=== PATIENT | male | born 1945 ===

== ENCOUNTER 2016-08-29 20:10 | Emergency (ER) | payer MEDICARE, BC ==
--- NOTE | 2016-08-30 16:11 | EDM.PDOC ---
ED HPI GENERAL MEDICAL PROBLEM - General Chief Complaint: General Stated Complaint: LAC ABOVE RIGHT EYE Time Seen by Provider: 08/29/16 20:15 Source of Information: Reports: Patient History Limitations: Reports: No Limitations - History of Present Illness INITIAL COMMENTS - FREE TEXT/NARRATIVE: This is a 71yo M here for a recent fall and hit his forehead with no loss of consciousness. Patient denies having a recent tetanus shot in the last 5-10 yrs. No other concerns. Onset: Sudden Location: Reports: Head Severity: Mild Associated Symptoms: Reports: No Other Symptoms - Related Data Allergies Allergy/AdvReac Type Severity Reaction Status Date / Time No Known Allergies Allergy Verified 08/29/16 20:25 Home Meds: Home Meds Hydrochlorothiazide 25 mg PO DAILY 08/29/16 [History] Metoprolol Tartrate [Lopressor] 25 mg PO Q12HR 08/29/16 [History] Rosuvastatin [Crestor] 10 mg PO DAILY 08/29/16 [History] Past Medical History - Past Health History Medical/Surgical History: Denies Medical/Surgical History ED ROS GENERAL - Review of Systems Review Of Systems: ROS reveals no pertinent complaints other than HPI. ED EXAM, GENERAL - Physical Exam Exam: See Below Exam Limited By: No Limitations General Appearance: Alert, WD/WN, No Apparent Distress Eye Exam: Bilateral Eye: EOMI, PERRL Ears: Normal External Exam Ear Exam: Bilateral Ear: TM normal Nose: Normal Inspection Throat/Mouth: Normal Inspection Head: Atraumatic, Normocephalic Neck: Normal Inspection, Supple, Non-Tender Respiratory/Chest: No Respiratory Distress, Lungs Clear, Normal Breath Sounds Cardiovascular: Normal Peripheral Pulses, Regular Rate, Rhythm Peripheral Pulses: 2+: Dorsalis Pedis (L), Dorsalis Pedis (R) GI/Abdominal: Normal Bowel Sounds, Soft, Non-Tender Back Exam: Normal Inspection, Full Range of Motion Extremities: Normal Inspection Neurological: Alert, Oriented, CN II-XII Intact Psychiatric: Normal Affect, Normal Mood Skin Exam: Wound/Incision (3.2cm linear gash ) ED GENERAL MEDICAL PROCEDURES - Laceration/Wound Repair Right Upper Face Lac/wound length in cm: 3.2 Appearance: Subcutaneous, Linear Distal NVT: Neuro & Vascular Intact, No Tendon Injury Exploration/Debridement/Repair: Wound Explored, Explored to Base Closed with: Dermabond Tetanus Status Addressed: Yes Course - Vital Signs Last Recorded V/S: Last Vital Signs Temp 37.3 C 08/29/16 23:27 Pulse 80 08/29/16 23:27 Resp 16 08/29/16 23:27 BP 167/95 H 08/29/16 23:27 Pulse Ox 99 08/29/16 23:27 Departure - Departure Time of Disposition: 20:30 Disposition: Home, Self-Care 01 Condition: Good Clinical Impression: Laceration - Discharge Information Referrals: PCP,None [Primary Care Provider] - Forms: ED Department Discharge - Problem List Review Problem List Initiated/Reviewed/Updated: Yes - Assessment/Plan Plan: Counseled on wound care. Counseled on dehiscence and follow up if any issues. Discussed monitoring wound for infection and rtc or ER if any concern. F/u with PCP at home for recheck. Patient agrees with plan of care and f/u.
== END 2016-08-29 20:55 | disposition home or self-care (01) ==
LOC: LB.ED 20:10
DX: S01.81XA Laceration without foreign body of other part of head, initial encounter (principal); Z79.899 Other long term (current) drug therapy; W01.10XA Fall on same level from slipping, tripping and stumbling with subsequent striking against unspecified object, initial encounter
CPT/HCPCS: 12013; 99282; 99282-25